=== PATIENT | female | born 2005 | race Caucasian/White ===

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

== ENCOUNTER → 2024-01-03 | Outpatient (CLI) | payer MEDICAID, OTHER | LOC: M WHC 11:14 | PROVIDERS: ATTEND Obstetrics & Gynecology | DX: O43.892 Other placental disorders, second trimester (principal); Z3A.26 26 weeks gestation of pregnancy ==

== ENCOUNTER → 2024-01-07 | Outpatient (CLI) | payer MEDICAID ==
[2024-01-07 14:08] LABS: HEMATOCRIT 30.9 % (36.0-47.0); HEMOGLOBIN 10.5 g/dl (12.0-15.5); MEAN CORPUSCULAR HEMOGLOBIN 31.1 pg (27.0-33.0); MEAN CORPUSCULAR VOLUME 91.4 fl (80.0-96.0); PLATELET COUNT, AUTOMATED 237 10^3/uL (150-450); RED BLOOD COUNT 3.38 10^6/uL (4.00-5.40); WHITE BLOOD COUNT 13.2 10^3/uL (4.0-10.0)
[2024-01-07 14:29] LABS: GLUCOSE CHALLENGE TEST 1 HOUR 139 MG/DL (LESS THAN 140)
[2024-01-07 14:58] LABS: HIV 1&2 SCREEN NEGATIVE (NEGATIVE)
[2024-01-07 15:06] LABS: HEPATITIS C VIRUS ABY INDEX 0.02 INDEX (<0.8)
[2024-01-07 16:50] LABS: GC DNA AMPLIFICATION NEGATIVE (NEGATIVE)
== END ==
LOC: M PLALAB 10:37
PROVIDERS: ATTEND Obstetrics & Gynecology
DX: Z34.82 Encounter for supervision of other normal pregnancy, second trimester (principal)

== ENCOUNTER → 2024-01-22 | Outpatient (CLI) | payer OTHER | LOC: M RAD 10:31 | PROVIDERS: ATTEND Obstetrics & Gynecology | DX: Z34.93 Encounter for supervision of normal pregnancy, unspecified, third trimester (principal) ==

== ENCOUNTER 2024-02-15 00:43 | Emergency (ER) | payer OTHER ==
[~2024-02-15] VITALS: Ht 157.5 cm; Wt 54.0 kg
[2024-02-15 00:44] VITALS: BP 117/60; TEMP 97.8; O2SAT 96
[2024-02-15] MEDS ORDERED: PREN1CHW6 PO (00:52)
[2024-02-15] MEDS ORDERED: AMOX875T PO (01:20)
[2024-02-15] MEDS: AMOXICILLIN 500 MG CAP PO ONE (02:06)
== END 2024-02-15 02:41 | disposition home or self-care (01) ==
LOC: M ED 00:43
DX: H65.91 Unspecified nonsuppurative otitis media, right ear (principal); J02.9 Acute pharyngitis, unspecified; Z79.2 Long term (current) use of antibiotics; Z79.810 Long term (current) use of selective estrogen receptor modulators (SERMs)

== ENCOUNTER → 2024-02-18 | Outpatient (CLI) | payer OTHER ==
[~2024-02-18] MED LIST changes: +AMOX875T PO; +PREN1CHW6 PO
== END ==
LOC: M WHC 11:45
PROVIDERS: ATTEND Nurse Practitioner Family
DX: Z34.03 Encounter for supervision of normal first pregnancy, third trimester (principal)

== ENCOUNTER → 2024-03-09 | Outpatient (REF) | payer OTHER | LOC: M LAB 06:58 → EDSTATUS 07:00 → M LAB 10:13 | PROVIDERS: ATTEND Obstetrics & Gynecology | DX: Z36.89 Encounter for other specified antenatal screening (principal); Z3A.36 36 weeks gestation of pregnancy ==

== ENCOUNTER 2024-03-13 23:06 | Outpatient (CLI) | payer OTHER ==
[~2024-03-13] VITALS: Ht 157.5 cm; Wt 55.9 kg
[2024-03-13 23:23] VITALS: BP 113/58
[2024-03-13] MEDS ORDERED: HOME MED LIST COMPLETE! XX SCH (23:30)
== END 2024-03-14 00:05 | disposition home or self-care (01) ==
LOC: M LDO 23:06
PROVIDERS: ATTEND Obstetrics & Gynecology
DX: O47.03 False labor before 37 completed weeks of gestation, third trimester (principal); O99.013 Anemia complicating pregnancy, third trimester; D50.9 Iron deficiency anemia, unspecified; Z3A.36 36 weeks gestation of pregnancy
CPT/HCPCS: 59025; G0463

== ENCOUNTER → 2024-03-18 | Outpatient (CLI) | payer OTHER | LOC: M LAB 06:49 | PROVIDERS: ATTEND Obstetrics & Gynecology | DX: O99.810 Abnormal glucose complicating pregnancy (principal) ==

== ENCOUNTER → 2024-03-24 | Outpatient (CLI) | payer OTHER | LOC: M RAD 11:53 | PROVIDERS: ATTEND Nurse Practitioner Family | DX: Z34.03 Encounter for supervision of normal first pregnancy, third trimester (principal) ==

== ENCOUNTER 2024-03-30 08:38 | Inpatient (IN) | payer OTHER ==
[2024-03-30] VITALS (13 sets, daily range): BP systolic 96–124; BP diastolic 52–79
[~2024-03-30] VITALS: Ht 157.5 cm; Wt 58.3 kg
[2024-03-30] MEDS ORDERED: HOME MED LIST COMPLETE! XX SCH (08:55)
[2024-03-30 09:21] LABS: HEMOGLOBIN 8.6 g/dl (12.0-15.5); MEAN CORPUSCULAR HEMOGLOBIN 25.2 pg (27.0-33.0); MEAN CORPUSCULAR HGB CONC 31.9 g/dl (32.0-36.5); MEAN CORPUSCULAR VOLUME 79.2 fl (80.0-96.0); PLATELET COUNT, AUTOMATED 199 10^3/uL (150-450); RED BLOOD COUNT 3.41 10^6/uL (4.00-5.40); WHITE BLOOD COUNT 9.9 10^3/uL (4.0-10.0)
[2024-03-30 10:27] LABS: HEPATITIS C VIRUS ABY INDEX 0.02 INDEX (<0.8)
[2024-03-30] MEDS: LACTATED RINGER'S 1000 ML IV STA (11:23)
[2024-03-30] MEDS ORDERED: METHYLERGONOVINE MALEATE 0.2MG/ML 1ML VIAL IM PRN (11:25)
[2024-03-30] MEDS ORDERED: OXYTOCIN INJ 10UNITS/ML 1ML VIAL IM PRN (11:25)
[2024-03-30] MEDS ORDERED: OXYTOCIN DRIP 30 UNITS in IV 1 EA IV PRN (11:25)
[2024-03-30] MEDS ORDERED: TRANEXAMIC ACID INJection 1,000 MG in NS 100 ML IV PRN (11:25)
[2024-03-30] MEDS ORDERED: CARBOPROST TROMETHAMINE 250 MCG/ML AMP IM PRN (11:25)
[2024-03-30] MEDS: miSOPROStol 50MCG 1/2 TABLET PO SCH (11:30)
[2024-03-31] VITALS (25 sets, daily range): BP systolic 98–141; BP diastolic 55–92; O2SAT 97
[2024-03-31] MEDS ORDERED: LR 500 ML IV PRN (08:55)
[2024-03-31] MEDS ORDERED: NALOXONE INJ 0.4MG/1ML VIAL IV PRN (08:55)
[2024-03-31] MEDS ORDERED: diphenhydrAMINE 50MG/ML VIAL IV PRN (08:55)
[2024-03-31] MEDS ORDERED: ePHEDrine SULFATE 25 MG/5 ML(5MG/ML) SYRINGE IVP PRN (08:55)
[2024-03-31] MEDS ORDERED: ONDANSETRON 4MG 2ML VIAL IV PRN (08:55)
[2024-03-31] MEDS ORDERED: EPIDURAL/PCA KEYS XX PRN (08:55)
[2024-03-31] MEDS: FENTANYL/ROPIVACAINE/NACL BAG 100 ML EPIDURAL SCH (09:23)
[2024-03-31] MEDS: OXYTOCIN DRIP 30 UNITS in IV 1 EA IV SCH (10:02)
[2024-03-31] MEDS: LR 1,000 ML IV SCH (11:50)
[2024-03-31 15:50] LABS: CORD GAS ABE V -1.3; CORD GAS HCO3 V 26.3 MMOL/L; CORD GAS O2 SAT V 52.9 %; CORD GAS PCO2 V 54.2 mmHg; CORD GAS PH V 7.304 UNITS; CORD GAS PO2 V 20.2 mmHg; CORD GAS SBC V 22.1 MMOL/L
[2024-03-31 15:51] LABS: CORD GAS ABE A -4.8; CORD GAS HCO3 A 25.8 MMOL/L; CORD GAS O2 SAT A 23.9 %; CORD GAS PCO2 A 70.2 mmHg; CORD GAS PH A 7.183 UNITS; CORD GAS PO2 A 14.8 mmHg; CORD GAS SBC A 18.6 MMOL/L; CORD GAS TCO2 A 27.9 MMOL/L
[2024-03-31] MEDS: LIDOCAINE 1% MDV 20ML VIAL INFIL PRN (15:53)
[2024-03-31] MEDS ORDERED: ACETAMINOPHEN 325 MG TAB PO PRN (16:15)
[2024-03-31] MEDS ORDERED: DOCUSATE SODIUM 100MG CAPSULE PO PRN (16:15)
[2024-03-31] MEDS ORDERED: IBUPROFEN 800 MG TAB PO PRN (16:15)
[2024-03-31] MEDS ORDERED: RHOGAM 300MCG (1500IU) INJ IM SCH (16:15)
[2024-03-31] MEDS ORDERED: METHYLERGONOVINE MALEATE 0.2 MG TAB PO PRN (16:15)
[2024-03-31] MEDS ORDERED: DIBUCAINE 1% OINTMENT 30GM TOP PRN (16:15)
[2024-03-31] MEDS: IBUPROFEN 600MG TAB PO PRN (16:49)
[2024-04-01 06:00] VITALS: BP 101/62; O2SAT 99
[2024-04-01] MEDS: ACETAMINOPHEN 500 MG TAB PO PRN (09:49)
[2024-04-01] MEDS: PRENATAL VITAMINS CHEWABLE TABLET PO SCH (09:49)
[2024-04-01 18:00] VITALS: BP 109/73; O2SAT 99
[2024-04-02 06:00] VITALS: BP 111/60; O2SAT 99
[2024-04-02] MEDS ORDERED: MEASLES,MUMPS,RUBELLA VACCINE INJ (MMR-II) SC.IMMUN ONE (09:00)
== END 2024-04-02 14:25 | disposition home or self-care (01) | DRG 560 ==
LOC: M LDI 08:38 → M OBS 03-31 17:58
PROVIDERS: ADMIT Specialist; ATTEND Specialist
PROC: 3E0P7GC Introduction of Other Therapeutic Substance into Female Reproductive, Via Natural or Artificial Opening (ICD-10-PCS; 2024-03-30)
PROC: 10E0XZZ Delivery of Products of Conception, External Approach (ICD-10-PCS; principal; 2024-03-31)
PROC: 0KQM0ZZ Repair Perineum Muscle, Open Approach (ICD-10-PCS; 2024-03-31)
PROC: 10907ZC Drainage of Amniotic Fluid, Therapeutic from Products of Conception, Via Natural or Artificial Opening (ICD-10-PCS; 2024-03-31)
DX: O24.420 Gestational diabetes mellitus in childbirth, diet controlled (principal); D64.9 Anemia, unspecified; Z3A.39 39 weeks gestation of pregnancy; O99.02 Anemia complicating childbirth; O70.1 Second degree perineal laceration during delivery; Z37.0 Single live birth

== ENCOUNTER 2025-03-05 01:32 | Emergency (ER) | payer OTHER ==
[~2025-03-05] VITALS: Ht 157.5 cm; Wt 48.2 kg
[~2025-03-05 01:32] MED LIST changes: +CETI10CH PO
[2025-03-05] MEDS ORDERED: TAMI60SU PO (07:11)
[2025-03-05] MEDS: OSELTAMIVIR 6 MG/ML SUSP PO ONE (07:21)
[2025-03-05] MEDS: IBUPROFEN 100 MG 5 ML SUSP UDC DYE FREE PO ONE (07:22)
[2025-03-05] MEDS: ONDANSETRON 4MG ORAL DISINTEGRATING TAB PO ONE (08:50)
[2025-03-05] MEDS: NS (Normal Saline) 0.9% 1,000 ML IV ONE (08:55)
[2025-03-05 12:19] VITALS: BP 116/64; TEMP 99.3; O2SAT 97
[2025-03-05] MEDS ORDERED: ONDA-282 PO (12:23)
== END 2025-03-05 12:30 | disposition home or self-care (01) ==
LOC: M ED 01:32
DX: J09.X2 Influenza due to identified novel influenza A virus with other respiratory manifestations (principal); Z79.899 Other long term (current) drug therapy